=== PATIENT | female | born 1995 | race Hispanic/Latino ===

== ENCOUNTER 2022-08-14 09:01 | Emergency (ER) | payer MEDICAID, OTHER ==
[2022-08-14] MEDS ORDERED: Acetaminophen 500 MG TAB ONE (09:15)
== END 2022-08-14 11:00 | disposition home or self-care (01) ==
LOC: ERS 09:01
DX: O9A.211 Injury, poisoning and certain other consequences of external causes complicating pregnancy, first trimester (principal); S93.602A Unspecified sprain of left foot, initial encounter; S90.32XA Contusion of left foot, initial encounter; O99.331 Smoking (tobacco) complicating pregnancy, first trimester; F17.290 Nicotine dependence, other tobacco product, uncomplicated; J45.909 Unspecified asthma, uncomplicated; Z79.51 Long term (current) use of inhaled steroids; Z3A.01 Less than 8 weeks gestation of pregnancy; W18.40XA Slipping, tripping and stumbling without falling, unspecified, initial encounter

== ENCOUNTER 2022-10-10 15:59 | Emergency (ER) | payer MEDICAID ==
[2022-10-10] MEDS ORDERED: diphenhydrAMINE 25 MG CAP ONE (16:44)
[2022-10-10 17:37] LABS: #Basophils 0.1 thou/uL (0.0-0.2); #Eosinphils 0.7 thou/uL (0.0-0.7); #Monocytes 1.1 thou/uL (0.11-0.59); #Neutrophils 11.2 thou/uL (1.40-6.50); %Basophils 0.4 % (0.0-1.0); %Eosinophils 4.4 % (0.0-10.0); %Lymphocytes 14.5 % (21.0-51.0); %Monocytes 7.3 % (0.0-10.0); %Neutrophils 72.9 % (42.0-75.0); Hematocrit 36.2 % (36.0-47.0); Hemoglobin 12.2 g/dL (12.0-16.0); Mean Corpuscular HGB CONC 33.7 g/dL (32.0-36.0); Mean Corpuscular Hemoglobin 31.4 pg (27.0-31.0); Mean Corpuscular Volume 93.3 fl (78.0-98.0); Mean Platelet Volume 9.1 fL (7.4-10.4); Platelet Count 384 10x3/uL (130-400); RBC Distribution Width 13.3 % (11.5-14.5); Red Blood Cell (RBC) Count 3.88 mill/uL (4.20-5.40); White Blood Cell (WBC) Count 15.4 10x3/uL (4.8-10.8)
[2022-10-10 18:03] LABS: ALT (SGPT) 7 U/L (8-55); AST (SGOT) 18 U/L (5-34); Albumin 3.6 g/dL (3.5-5.0); Alkaline Phosphatase 72 U/L (40-110); Anion Gap 16 mmol/L (10-20); BUN (Urea Nitrogen) 4 mg/dL (7.0-18.7); Bilirubin, Total 0.3 mg/dL (0.2-1.2); Calc. Creatinine Clearance 0 mL/min (70-130); Calcium 8.9 mg/dL (7.8-10.44); Carbon Dioxide 15 mmol/L (22-29); Chloride 106 mmol/L (98-107); Estimated GFR 126; Globulin 3.6 g/dL (2.4-3.5); Glucose 91 mg/dL (70-105); Potassium 3.6 mmol/L (3.5-5.1); Protein, Total 7.2 g/dL (6.0-8.3); Sodium 133 mmol/L (136-145)
[2022-10-10 19:24] LABS: Bacteria/HPF None Seen HPF (None Seen); Bilirubin Negative (Negative); Blood, Urine Negative (Negative); CAUTI Indications for Culture Dysuria,urgency,freq; Clarity Extra Turbid (Clear); Glucose, Urine (Dipstick) Normal (Negative); Ketone, Urine 80 mg/dL (Negative); Leukocyte 500 Leu/uL (Negative); Nitrite Negative (Negative); Protein, Urine (Dipstick) 20 mg/dL (Neg-Trace); RBC/HPF 0-3 HPF (0-3); Specific Gravity, Urine 1.014 (1.002-1.036); Urobilinogen Normal mg/dL (Less than 2); pH, Urine 7.5 (5.0-9.0)
[2022-10-10 19:26] LABS: Urine Culture Reflex No No
[2022-10-10] MEDS ORDERED: Ondansetron PF 4 MG/2 ML Vial ONE (20:25)
== END 2022-10-10 20:32 | disposition home or self-care (01) ==
LOC: ERS 15:59
DX: F41.1 Generalized anxiety disorder (principal); R07.89 Other chest pain
CPT/HCPCS: 36415; 71275; 80053; 81001; 84702; 85025; 85379; 96361; 96374; J2405

== ENCOUNTER 2023-08-23 03:35 | Emergency (ER) | payer MEDICAID ==
[2023-08-23] MEDS ORDERED: Acetaminophen 500 MG TAB ONE (04:51)
[2023-08-23] MEDS ORDERED: Lorazepam 1 MG TAB ONE (04:51)
[2023-08-23] MEDS ORDERED: Ketorolac Tromethamine 30 MG (1 mL) VIAL ONE (06:49)
== END 2023-08-23 08:14 | disposition home or self-care (01) ==
LOC: ERS 03:35 → EEVIPCON 03:35 → ERS 08:14
DX: S00-T88 Injury, poisoning and certain other consequences of external causes (principal); S10.91XA Abrasion of unspecified part of neck, initial encounter; S80.811A Abrasion, right lower leg, initial encounter; S90.511A Abrasion, right ankle, initial encounter; S90.412A Abrasion, left great toe, initial encounter; F41.1 Generalized anxiety disorder; Y04.2XXA Assault by strike against or bumped into by another person, initial encounter; Y93.89 Activity, other specified; Y92.009 Unspecified place in unspecified non-institutional (private) residence as the place of occurrence of the external cause
CPT/HCPCS: 96372; J1885